=== PATIENT | male | born 1960 | race Caucasian/White ===

== ENCOUNTER 2016-06-18 17:54 | Emergency (ER) | payer OTHER ==
[~2016-06-18] VITALS: Ht 170.2 cm; Wt 84.0 kg
[2016-06-18] MEDS ORDERED: morphine 4 MG/ML VIAL IV STA ×2 (19:01→20:16)
[2016-06-18] MEDS ORDERED: SOD CHLORIDE 0.9% 1,000 ML IV STA (19:01)
[2016-06-18 19:03] VITALS: Ht 170.2 cm; Wt 84.0 kg
[2016-06-18] MEDS ORDERED: ONDANSETRON 4 MG INJ ONE (19:27)
[2016-06-18 19:33] LABS: ADD UMIC YES; URINE BILIRUBIN (Dip) NEGATIVE (NEGATIVE); URINE BLOOD (Dip) TRACE (NEGATIVE); URINE COLOR LT. YELLOW (YELLOW); URINE GLUCOSE (Dip) NEGATIVE (NEGATIVE); URINE KETONES (Dip) NEGATIVE (NEGATIVE); URINE LEUKOCYTE ESTERASE (Dip) 1+ (NEGATIVE); URINE NITRITE (Dip) NEGATIVE (NEGATIVE); URINE TOTAL PROTEIN (Dip) NEGATIVE (NEGATIVE); URINE UROBILINOGEN (Dip) 1.0 E.U./dL (0.1-1.0)
[2016-06-18] MEDS ORDERED: ONDANSETRON 4 MG INJ IV STA (19:34)
[2016-06-18 19:37] LABS: BASOPHIL # 0.1 10^3/ul (0.0-0.1); BASOPHILS % 0.5 % (0.0-2.0); EOSINOPHILS % 0.3 % (0.0-7.0); HEMATOCRIT 46.6 % (42.0-52.0); HEMOGLOBIN 15.8 g/dl (14.0-18.0); LYMPHOCYTES # 2.3 10^3/ul (0.8-2.9); LYMPHOCYTES % 15.6 % (15.0-51.0); MEAN CORPUSCULAR HEMOGLOBIN 30.9 pg (29.0-33.0); MEAN CORPUSCULAR HGB CONC 33.9 g/dl (32.0-37.0); MEAN CORPUSCULAR VOLUME 91.1 fl (82.0-101.0); MEAN PLATELET VOLUME 9.3 fl (7.4-10.4); MONOCYTES % 7.1 % (0.0-11.0); NEUTROPHIL # 11.3 10^3/ul (1.6-7.5); NEUTROPHILS % 76.5 % (39.0-77.0); PLATELET COUNT 254 10^3/UL (140-440); RED BLOOD COUNT 5.11 10^6/ul (4.70-6.10); RED CELL DISTRIBUTION WIDTH 13.4 % (11.5-14.5); UNCORRECTED WBC 14.7 10^3/ul (4.8-10.8); WHITE BLOOD COUNT 14.7 10^3/ul (4.8-10.8)
[2016-06-18 19:38] VITALS: TEMP 98
[2016-06-18 19:40] LABS: CONDITION 1
[2016-06-18 19:45] LABS: BACTERIA,URINE MANY; URINE RBCS 0-2 /HPF (0)
[2016-06-18 19:46] LABS: ALBUMIN 4.5 g/dl (3.3-4.9)
[2016-06-18 19:47] LABS: POTASSIUM 4.1 mmol/L (3.5-5.1)
[2016-06-18 19:49] LABS: ALBUMIN/GLOBULIN RATIO 1.09; BILIRUBIN,INDIRECT 0.5 mg/dl (0-1.1); BILIRUBIN,TOTAL 0.5 mg/dl (0.2-1.3); CREATININE 1.02 mg/dl (0.61-1.24); TOTAL PROTEIN 8.6 g/dl (6.1-8.1)
[2016-06-18 19:50] LABS: CALCIUM 9.6 mg/dl (8.4-10.2)
--- NOTE | 2016-06-18 19:59 | RADRPT ---
PROCEDURE: Scrotal ultrasound CLINICAL INDICATION: Left scrotal pain. TECHNIQUE: A scrotal ultrasound was performed utilizing vazquez scale and Doppler imaging. COMPARISON: None. FINDINGS: The right testicle measures 4.6 x 2.3 x 2.5 cm. There is normal size and echogenicity and morphology of the right testicle with normal blood flow. The right epididymis measures 1.2 x 0.9 cm. Normal va scular flow is seen within the right epididymis. There is a 5 mm cyst in the right epididymal head. The left testicle measures 3.7 x 2.0 x 2.9 cm. There is normal size and echogenicity and morphology of the left testicle with normal blood flow. The left epididymis measures 1.3 x 0.9 cm. Increased al so seen within the left epididymis, consistent with epididymitis. There are small bilateral hydroceles. No varicocele is identified. IMPRESSION: 1. Left sided epididymitis. 2. No evidence of testicular torsion or orchitis. 3. Small bilateral hydroceles. RPTAT: HTAR .Nathan Arauz MD, Date Time Electronically viewed and signed by .Nathan Arauz MD, on 06/18/2016 19:58 .R/
[2016-06-18] MEDS ORDERED: CEFTRIAXONE 1 GM/50 ML (PMX) 50 ML IVPB ONE (20:00)
--- NOTE | 2016-06-18 20:16 | ERD ---
ER Documentation Chief Complaint Date/Time DATE: 06/18/16 TIME: 20:12 Chief Complaint testicular pain w/ swelling x 2 days, worse today HPI This is a 56-year-old male presents to the emergency room with a chief complaint of constant testicular pain for the past 2 days. He localizes the left testicle, states it is a achy pain worse with any rapid movement. The patient is denying any urethral discharge, but does state that he has noted some blood in the urine. This patient denies any fevers associated with this and came to the ER today for evaluation. ROS All systems reviewed and are negative except as per history of present illness. Medications Home Meds No Active Prescriptions or Reported Meds Allergies Allergies: Coded Allergies: No Known Drug Allergies (Verified Allergy, Unknown, 06/18/16) PMhx/Soc History of Surgery: No Anesthesia Reaction: No Hx Neurological Disorder: No Hx Respiratory Disorders: No Hx Cardiac Disorders: Yes ("MILD HIGH CHOLESTEROL".) Hx Psychiatric Problems: No Hx Miscellaneous Medical Probl: Yes (RECENT POSSILE MASS TO BLADDER.) Hx Alcohol Use: Yes Hx Substance Use: No Hx Tobacco Use: Yes Smoking Status: Current every day smoker Physical Exam Vitals Vital Signs Date Time Temp Pulse Resp B/P Pulse Ox O2 Delivery O2 Flow Rate FiO2 06/18/16 19:38 98.0 79 18 130/79 97 06/18/16 19:03 97.7 84 20 136/85 97 Physical Exam INITIAL VITAL SIGNS: Reviewed by me GENERAL: The patient is well developed and appropriate for usual state of health in no apparent distress HEENT: Pupils equal, round, and reactive to light. EOMI. There is no scleral icterus. NECK: C-spine is soft and supple, there is no meningismus. There is no cervical lymphadenopathy. LUNGS: Clear to auscultation bilaterally. There are no rales, wheezes or rhonchi. HEART: Regular rate and rhythm, no murmurs, clicks, rubs or gallops. ABDOMEN: Soft, non-tender, non-distended. There are bowel sounds in all four quadrants. No rebound or guarding. EXTREMITIES: There is no peripheral cyanosis or edema. No focal swelling or erythema. NEUROLOGICAL: The patient moves all four extremities with 5/5 strength. Cranial nerves II - XII are intact. Normal gait. Alert and oriented SKIN: There is no apparent rash or petechiae. exam: Left scrotal erythema, swelling, tender to palpation in the epididymal region, cremasteric reflex present HEME/LYMPHATIC: There is no evidence of excessive bruising or lymphedema. PSYCHIATRIC: The patient does not appear anxious or depressed. Result Diagram: 06/18/16191406/18/161914 Results 24 hrs Laboratory Tests Test 06/18/16 19:15 Alanine Aminotransferase (ALT/SGPT) 55IU/L Albumin 4.5g/dl Albumin/Globulin Ratio 1.09 Alkaline Phosphatase 91IU/L Anion Gap 18 Aspartate Amino Transf (AST/SGOT) 40IU/L Basophils # 0.110^3/ul Basophils % 0.5% Blood Urea Nitrogen 17mg/dl Calcium Level 9.6mg/dl Carbon Dioxide Level 28mmol/L Chloride Level 102mmol/L Creatinine 1.02mg/dl Direct Bilirubin 0.00mg/dl Eosinophils # 0.010^3/ul Eosinophils % 0.3% Globulin 4.10g/dl Glucose Level 83mg/dl Hematocrit 46.6% Hemoglobin 15.8g/dl Indirect Bilirubin 0.5mg/dl Lipase 195U/L Lymphocytes # 2.310^3/ul Lymphocytes % 15.6% Mean Corpuscular Hemoglobin 30.9pg Mean Corpuscular Hemoglobin Concent 33.9g/dl Mean Corpuscular Volume 91.1fl Mean Platelet Volume 9.3fl Monocytes # 1.010^3/ul Monocytes % 7.1% Neutrophils # 11.310^3/ul Neutrophils % 76.5% Nucleated Red Blood Cells # 0.010^3/ul Nucleated Red Blood Cells % 0.0/100WBC Platelet Count 60119^3/UL Potassium Level 4.1mmol/L Red Blood Count 5.1110^6/ul Red Cell Distribution Width 13.4% Sodium Level 144mmol/L Total Bilirubin 0.5mg/dl Total Protein 8.6g/dl Urine Bacteria MANY Urine Bilirubin NEGATIVE Urine Clarity SLIGHTLY CLOUDY Urine Color LT. YELLOW Urine Glucose NEGATIVE% Urine Hemoglobin TRACE Urine Ketones NEGATIVE Urine Leukocyte Esterase 1+ Urine Microscopic RBC 0-2/HPF Urine Microscopic WBC >50/HPF Urine Nitrite NEGATIVE Urine Specific [place] 1.025 Urine Total Protein NEGATIVE Urine Urobilinogen 1.0 E.U./dL Urine pH 6.0 White Blood Count 14.710^3/ul Current Medications Medications (Trade) Dose Ordered Sig/Kiara Route PRN Reason Start Time Stop Time Status Last Admin Dose Admin Morphine Sulfate 4 mg 4 mg ONCE STAT IV 06/18/16 19:01 06/18/16 19:03 DC 06/18/16 19:33 Sodium Chloride (NS) 1,000 ml @ 1,000 mls/hr Q1H STAT IV 06/18/16 19:01 06/18/16 20:00 DC 06/18/16 19:33 Ondansetron HCl (Zofran Inj) 4 mg STK-MED ONCE .ROUTE 06/18/16 19:27 06/18/16 19:28 DC Ondansetron HCl 4 mg 4 mg ONCE STAT IV 06/18/16 19:34 06/18/16 19:35 DC 06/18/16 19:34 Ceftriaxone Sodium (Rocephin) 50 ml @ 100 mls/hr ONCE ONCE IVPB 06/18/16 20:00 06/18/16 20:29 Procedures/MDM Ultrasound scrotum: 1. Left sided epididymitis. 2. No evidence of testicular torsion or orchitis. 3. Small bilateral hydroceles. This 56-year-old male presents to the emergency room for evaluation of testicular pain. The patient localizes the testicular pain to the left portion of his scrotum. He was found to have erythematous and swollen scrotum. The patient did undergo an ultrasound which did confirm my suspicion of left-sided epididymitis. This patient is afebrile at this time, he was given Rocephin here in the emergency room and will be discharged home with a prescription for ciprofloxacin, Stevens for breakthrough pain, and a referral for outpatient urology. Smoking Cessation Therapy: Pt. was lectured for greater than 3 minutes on the health risks of continued smoking and the benefits of cessation. Departure Diagnosis: Primary Impression: Acute epididymitis Additional Impressions: Tobacco abuse Tobacco abuse counseling Condition: ALISHA Curry DO Jun 18, 2016 20:16
[2016-06-18] MEDS ORDERED: HYDR-906 PO (20:17)
[2016-06-18] MEDS ORDERED: CIPR500T4 PO (20:17)
[2016-06-18 20:40] VITALS: BP 135/93; PULSE 86; RESP 18
== END 2016-06-18 20:49 | disposition home or self-care (01) ==
LOC: E/R 17:54
DX: N45.1 Epididymitis (principal); F17.210 Nicotine dependence, cigarettes, uncomplicated; Z71.6 Tobacco abuse counseling
CPT/HCPCS: 76870; 80053; 81001; 81003; 83690; 85025; 87086; J0696; J2270; J2405; J7030; 36415; 96374; 96375; 96376

== ENCOUNTER 2017-05-05 10:11 | Day surgery (SDC) | payer OTHER ==
[2017-05-05] VITALS (11 sets, daily range): BP systolic 119–146; BP diastolic 85–100; PULSE 62–73; RESP 12–20; Ht 162.6 cm; Wt 82.6 kg
[~2017-05-05] VITALS: Ht 162.6 cm; Wt 82.6 kg
--- NOTE | 2017-05-05 08:56 | HP ---
DATE OF ADMISSION: 05/05/2017 The patient is scheduled for surgery today at noon. CHIEF COMPLAINT: Gross hematuria. HISTORY OF PRESENT ILLNESS: This is a 57-year-old male who is a smoker, about 1 pack of cigarettes a day and has been having gross hematuria on and off since 04/2016. He denies any prior surgery. Elvira brumfield did undergo a CT scan and that showed a tumor in the bladder. He also has seen another urologist and had a cystoscopy and was told there is a bladder tumor. PAST MEDICAL PROBLEMS: The patient has no other past medical problems. ALLERGIES: NO ALLERGIES. MEDICATIONS: He does not take any medication at home except for Vitamin D. SOCIAL HISTORY: He does drink socially and he smokes 1 pack of cigarettes a day. REVIEW OF SYSTEMS: He denies having any hypertension. There is no history of diabetes. There is n o heart or lung disease. GI system, he does complain of constipation. PHYSICAL EXAMINATION: GENERAL: Reveals a well-developed male who is in no acute distress. HEAD AND NECK: Unremarkable. HEART: Regular. LUNGS: Clear. ABDOMEN: Soft. There is no abdominal mass palpable. GENITALIA: External genitalia are normal. RECTAL: Examination revealed soft prostate. The patient does have a tumor on the left side of the bladder. EXTREMITIES: Normal. IMPRESSION: Bladder tumor. PLAN: To do a cystoscopy and transurethral resection of the bladder tumor and if the tumor is cover ing the left ureteral orifice the patient will need to have insertion of a JJ stent. I have explain ed to the patient and to his the procedure, the benefits, the risks and the possible complicati ons and the fact that the bladder tumors do tend to come back and have recurrences and therefore, fu ture need for cystoscopies and if needed, undergoing additional treatment or surgeries. The patient did understand all that and he is agreeable to proceed. Dictated By: ZACK CHAVEZ/FABIÁN Conf#: [id number] DID#: [id number]
[~2017-05-05 10:11] MED LIST: CIPR500T4 PO; HYDR-906 PO
[2017-05-05] MEDS ORDERED: CEFAZOLIN 2 GM/50 ML (PMX) 50 ML IVPB SCH (11:00)
[2017-05-05] MEDS ORDERED: FENTAnyl 50 MCG/ML VIAL ONE (12:54)
[2017-05-05] MEDS ORDERED: MIDAZOLAM 1 MG/ML 2 ML INJ ONE (12:54)
[2017-05-05] MEDS ORDERED: PROPOFOL 20 ML ONE (12:54)
[2017-05-05] MEDS ORDERED: DEXAMETHASONE 4 MG/ML 1 ML INJ ONE (13:36)
[2017-05-05] MEDS ORDERED: ONDANSETRON 4 MG INJ ONE (13:36)
[2017-05-05] MEDS ORDERED: CEFAZOLIN 1 GM INJ ONE (13:36)
[2017-05-05] MEDS ORDERED: SUGAMMADEX SODIUM 200 MG/2 ML VIAL IV ONE (13:36)
[2017-05-05] MEDS ORDERED: METOCLOPRAMIDE 10 MG INJ ONE (13:36)
--- NOTE | 2017-05-05 13:56 | OPR ---
Date/Time of Note Date/Time of Note DATE: 05/05/17 TIME: 13:49 Operative Report Procedure Date: May 05, 2017 Preoperative Diagnosis Bladder tumor Postoperative Diagnosis Bladder tumor Operation/Procedure Performed Transurethral resection of bladder tumor Surgeon see signature line Flat Lock Operator None Anesthesia Type: general Anesthesiologist: JUDY CORONEL MD Estimated Blood Loss: minimal Transfusion none Specimen 1:bladder tumor left lateral wall, 2:base of bladder tumor Grafts/Implants none Complications none Pt Condition Post Procedure: stable Disposition: PACU Indications Bladder tumor Procedure Description The patient was brought to the operating room and given general anesthesia. The patient was positioned in the lithotomy position. He was given 2 g of Ancef IV at the start of the procedure. Timeout was done and the patient was identified by his name birthdate and the procedure. The genital area was then prepped and draped in the usual sterile manner. #22 [place] cystoscope sheath was then introduced under direct vision through the penile urethra all the way to the bladder. The tumor was identified on the left side of the bladder proximal and lateral to the left ureteral orifice. The ureteral orifices were both clean and away from the tumor. There were no additional tumors. The scope was then removed and a 26 [place] bipolar resectoscope sheath was introduced under direct vision all the way to the bladder. The tumor was then resected and the tissue collected for pathology. Then I did take a deep got at the base of the tumor and sent it separately for pathology. The tumor base and the edges were then electrocoagulated and there were no area of bleeding. The bladder was then emptied and the area of the tumor was again observed to make sure there is no bleeding. The bladder was emptied the scope was removed and the patient was transferred to recovery room in stable and satisfactory condition ZACK RAJAN MD May 05, 2017 13:56
[2017-05-05] MEDS ORDERED: METOCLOPRAMIDE 10 MG INJ IV PRN (14:00)
[2017-05-05] MEDS ORDERED: EPHEDrine SULFATE 50 MG/5 ML SYG IV PRN (14:00)
[2017-05-05] MEDS ORDERED: hydrALAzine 20 MG INJ IV PRN (14:00)
[2017-05-05] MEDS ORDERED: morphine (1 MG/ML) 10ML SYRINGE IV PRN ×3 (14:00)
[2017-05-05] MEDS ORDERED: LABETALOL HCL 20MG INJ IV PRN (14:00)
[2017-05-05] MEDS ORDERED: ONDANSETRON 4 MG INJ IV PRN (14:00)
[2017-05-05] MEDS ORDERED: FENTAnyl 50 MCG/ML VIAL IV PRN ×2 (14:00)
[2017-05-05] MEDS: FENTAnyl 50 MCG/ML VIAL IV PRN ×2 (14:17→14:30)
[2017-05-05] MEDS ORDERED: HYDROCODONE/APAP (5/325) TAB PO PRN (14:30)
== END 2017-05-05 16:25 | disposition home or self-care (01) ==
LOC: SDS 10:11
PROVIDERS: ATTEND Urology
DX: D49.4 Neoplasm of unspecified behavior of bladder (principal); Z72.0 Tobacco use
CPT/HCPCS: 52234; J0690; J1100; J2250; J2405; J2765; J3010; Z7512; Z7610

== ENCOUNTER → 2018-02-05 | Day surgery (SDC) | END | disposition home or self-care (01) ==

== ENCOUNTER 2018-02-08 07:57 | Emergency (ER) | END 2018-02-08 10:52 | disposition home or self-care (01) ==

== ENCOUNTER 2018-02-12 09:57 | Inpatient (IN) | END 2018-02-14 15:35 | disposition home or self-care (01) | DRG 392 ==

== ENCOUNTER 2018-02-24 10:42 | Inpatient (IN) | END 2018-03-25 15:11 | disposition home health service (06) | DRG 653 ==

== ENCOUNTER 2018-06-13 11:29 | Emergency (ER) | payer OTHER ==
[~2018-06-13] VITALS: Ht 170.2 cm; Wt 75.3 kg
[~2018-06-13 11:29] MED LIST changes: -CIPR500T4 PO; +DOXY100T2 PO; +FLUC100T PO; -HYDR-906 PO; +LACT1CAP28 PO; +OXYB5TAB7 PO; +OXYC-438 PO; +RIVA15TA PO
[2018-06-13 11:34] VITALS: Ht 170.2 cm; Wt 75.3 kg
[2018-06-13] MEDS ORDERED: SODIUM CHLORIDE 0.9% 1L BAG IV* STA (12:25)
[2018-06-13] MEDS ORDERED: PIPER-TAZO 3.375 GM IV (PMX) 100 ML IVPB STA (12:25)
[2018-06-13] MEDS ORDERED: OXYB5TAB7 PO (12:38)
[2018-06-13] MEDS ORDERED: RIVA20TA5 PO (12:38)
[2018-06-13] MEDS ORDERED: TAMS0.4C2 PO (12:39)
[2018-06-13] MEDS ORDERED: CIPR500T4 PO (13:48)
--- NOTE | 2018-06-13 13:51 | ERD ---
ER Documentation Chief Complaint Chief Complaint bilateral flank pain x 2 days HPI Patient is a 58-year-old male with bladder cancer who presents with 2 days of fever. He has a history of bladder surgery with nephrostomy tubes. He had blood in his urine as well. He called Dr. Gruber his urologist from [facility] but the office was not open. Therefore he came to the emergency department. He took Tylenol last night for the fever. He has some pus from around his suprapubic catheter. He has an appointment scheduled on June 17 with his urologist. His primary doctor is Dr. Reardon. Upon review of old medical records this is the patient's seventh visit to the ER since 2016. ROS All systems reviewed and are negative except as per history of present illness. Medications Home Meds Active Scripts Ciprofloxacin Hcl* (Ciprofloxacin Hcl*) 500 Mg Tablet, 500 MG PO BID for 10 Days, TAB Prov:MAHIN MORENO MD 06/13/18 Reported Medications Tamsulosin Hcl* (Tamsulosin Hcl*) 0.4 Mg Cap.er.24h, 0.4 MG PO HS, CAP 06/13/18 Oxybutynin Chloride* (Ditropan*) 5 Mg Tab, 5 MG PO TID, TAB 06/13/18 Rivaroxaban* (Xarelto*) 20 Mg Tablet, 20 MG PO WITH DINNER, TAB 06/13/18 Discontinued Scripts Lactobacillus Rhamnosus GG (Culturelle) 1 Each Capsule, 1 CAP PO BID for 30 Days, #60 CAP Prov:JAMA CAPELLAN 03/25/18 Oxycodone HCl/Acetaminophen (Oxycodone-Acetaminophen 5-325) 1 Each Tablet, 1 TAB PO Q4H PRN for PAIN LEVEL 1-5 for 10 Days, TAB Prov:JAMA CAPELLAN 03/25/18 Rivaroxaban* (Xarelto*) 15 Mg Tablet, 15 MG PO BID WITH MEALS for 21 Days, TAB Prov:JAMA CAPELLAN 03/25/18 Fluconazole* (Diflucan*) 100 Mg Tablet, 100 MG PO DAILY for 10 Days, #10 TAB Prov:JAMA CAPELLAN 03/25/18 Doxycycline* (Vibramycin*) 100 Mg Tab, 100 MG PO BID for 10 Days, #20 TAB Prov:JAMA CAPELLAN 03/25/18 Oxybutynin Chloride* (Ditropan*) 5 Mg Tablet, 5 MG PO TID for 30 Days, TAB Prov:JAMA CAPELLAN 03/25/18 Allergies Allergies: Coded Allergies: warfarin (Verified Allergy, Intermediate, severe nausea and headache and abdominal pain, 06/13/18) Per primary MD and RN- documented 03/23 1830 after warfarin dose PMhx/Soc History of Surgery: Yes (BLADDER CA TUMOR REMOVAL) Anesthesia Reaction: No Hx Neurological Disorder: No Hx Respiratory Disorders: No Hx Cardiac Disorders: No Hx Psychiatric Problems: No Hx Miscellaneous Medical Probl: Yes (BLADDER CA , S/P RESECTION , BLOOD CLOT IN LEG) Hx Alcohol Use: No Hx Substance Use: No Hx Tobacco Use: No (QUIT 05/01) Smoking Status: Former smoker FmHx Family History: No diabetes Physical Exam Vitals Vital Signs Date Temp Pulse Resp B/P (MAP) Pulse Ox O2 O2 Flow FiO2 Time Delivery Rate 06/13/18 98.1 88 17 136/86 100 Room Air 12:51 (103) 06/13/18 97.2 86 18 115/72 96 11:34 (86) Physical Exam Const: No acute distress Head: Atraumatic Eyes: Normal Conjunctiva ENT: Normal External Ears, Nose and Mouth. Neck: Full range of motion. No meningismus. Resp: Clear to auscultation bilaterally Cardio: Regular rate and rhythm, no murmurs Abd: Soft, non tender, non distended. Normal bowel sounds Skin: Hole at the suprapubic catheter which is no longer in place has some pus like discharge Back: No midline or flank tenderness Ext: No cyanosis, or edema Neur: Awake and alert Psych: Normal Mood and Affect Result Diagram: 06/13/18 1242 06/13/18 1242 Results 24 hrs Laboratory Tests Test 06/13/18 12:42 06/13/18 12:43 06/13/18 13:00 White Blood Count 9.8 10^3/ul Red Blood Count 4.46 10^6/ul Hemoglobin 12.7 g/dl Hematocrit 39.5 % Mean Corpuscular Volume 88.6 fl Mean Corpuscular Hemoglobin 28.5 pg Mean Corpuscular 32.2 g/dl Hemoglobin Concent Red Cell Distribution Width 14.6 % Platelet Count 239 10^3/UL Mean Platelet Volume 10.0 fl Immature Granulocytes % 0.500 % Neutrophils % 69.6 % Lymphocytes % 17.7 % Monocytes % 11.1 % Eosinophils % 0.8 % Basophils % 0.3 % Nucleated Red Blood Cells % 0.0 /100WBC Immature Granulocytes # 0.050 10^3/ul Neutrophils # 6.8 10^3/ul Lymphocytes # 1.7 10^3/ul Monocytes # 1.1 10^3/ul Eosinophils # 0.1 10^3/ul Basophils # 0.0 10^3/ul Nucleated Red Blood Cells # 0.0 10^3/ul Prothrombin Time 12.7 Sec Prothrombin Time Ratio 1.0 INR International 0.94 Normalized Ratio Activated Partial Thromboplast 28.8 Sec Time Sodium Level 142 mmol/L Potassium Level 4.6 mmol/L Chloride Level 106 mmol/L Carbon Dioxide Level 27 mmol/L Anion Gap 9 Blood Urea Nitrogen 15 mg/dl Creatinine 0.67 mg/dl Est Glomerular Filtrat > 60 mL/min Rate mL/min Glucose Level 97 mg/dl Calcium Level 9.7 mg/dl Troponin I < 0.012 ng/ml POC Venous Lactate 1.3 mmol/L Urine Color YELLOW Urine Clarity CLOUDY Urine pH 5.0 Urine Specific [place] 1.015 Urine Ketones NEGATIVE mg/dL Urine Nitrite POSITIVE mg/dL Urine Bilirubin NEGATIVE mg/dL Urine Urobilinogen NEGATIVE mg/dL Urine Leukocyte Esterase 3+ Annamaria/ul Urine Microscopic RBC > 182 /HPF Urine Microscopic WBC > 182 /HPF Urine Bacteria FEW /HPF Urine Mucus FEW /HPF Urine Hemoglobin 3+ mg/dL Urine Glucose NEGATIVE mg/dL Urine Total Protein 1+ mg/dl Current Medications Medications Dose Sig/Kiara Start Time Status Last (Trade) Ordered Route PRN Stop Time Admin Dose Reason Admin Sodium 2,260 ml BOLUS OVER 2 06/13/18 DC 06/13/18 Chloride HOURS STAT 12:25 12:45 (NS) IV* 06/13/18 12:26 Piperacillin 100 ml @ ONCE STAT 06/13/18 DC 06/13/18 Sod/ 200 mls/hr IVPB 12:25 13:21 Tazobactam 06/13/18 Sod 12:54 Procedures/MDM EKG read by me: Rate/Rhythm: Regular rate and rhythm at a rate of 84 Intervals: Normal Impression: No evidence of ischemia or arrhythmia CT abdomen pelvis is pending at this time. She is a 58-year-old male with a history of bladder surgery who presents with fever and hematuria. The patient was found to have acute cystitis. Laboratory studies otherwise are basically normal. CT scan of the abdomen and pelvis is pending at this time to rule out intra-abdominal abscess. If this is negative I believe outpatient management with Cipro would be reasonable for 10 days and I did encourage close follow-up with his urologist. The patient could return for any worsening symptoms. The patient will be signed out to the oncoming physician. Departure Diagnosis: Primary Impression: Cystitis Additional Impression: Flank pain Condition: Fair Patient Instructions: Cystitis Referrals: Dr. Gruber Additional Instructions: SPECIALIST: YOU HAVE A MEDICAL CONDITION WHICH REQUIRES YOU TO SEE A SPECIALIST WITHIN THE NEXT 1-2 DAYS. PLEASE FOLLOW UP WITH YOUR PRIMARY PHYSICIAN FOR REFFERAL.IF YOU DO NOT HAVE A PRIMARY CARE PHYSICIAN AND/OR YOU CAN NOT AFFORD TO SEE A PHYSICIAN THE FOLLOWING RESOURCES HAVE BEEN SUPPLIED TO YOU. IT IS YOUR RESPONSIBILITY TO BE SEEN BY THE SPECIALIST MAHIN MORENO MD Jun 13, 2018 13:51
[2018-06-13 14:08] VITALS: BP 112/82; PULSE 70; RESP 17
[2018-06-13] MEDS ORDERED: IOHEXOL 300MG/ML 150 ML BTL ONE (14:24)
[2018-06-13] MEDS ORDERED: SOD CHLORIDE 0.9% 100 ML ONE (14:24)
--- NOTE | 2018-06-13 15:02 | EN ---
Date/Time of Note Date/Time of Note DATE: 06/13/18 TIME: 15:01 ER Progress Note Patient signed out to me pending CT scan of the abdomen and pelvis. No intra- abdominal or pelvic abscess identified on CT imaging. Plan was for discharge if CT scan is unremarkable, which it is. Patient's vital signs are normal and he is asymptomatic at this time. Patient discharged to home in good condition with scheduled follow-up with PMD and urologist. JAMA LYNN MD Jun 13, 2018 15:02
== END 2018-06-13 15:20 | disposition home or self-care (01) ==
LOC: E/R 11:29
DX: N30.90 Cystitis, unspecified without hematuria (principal); Z85.51 Personal history of malignant neoplasm of bladder; Z87.891 Personal history of nicotine dependence; Z79.01 Long term (current) use of anticoagulants
CPT/HCPCS: 36415; 74177; 80048; 81001; 83605; 84484; 85025; 85610; 85730; 87040; 87086; 93005; 96374; J2543; J7030; Q9967; Z7502; Z7610

== ENCOUNTER → 2018-10-17 | Outpatient (CLI) | payer OTHER ==
[~2018-10-17] MED LIST changes: +CIPR500T4 PO; -DOXY100T2 PO; -FLUC100T PO; +IOHEXOL 300MG/ML 30 ML BTL ONE; -LACT1CAP28 PO; -OXYC-438 PO; -RIVA15TA PO; +RIVA20TA5 PO; +SOD CHLORIDE 0.9% 500 ML ONE; +TAMS0.4C2 PO
== END | disposition home or self-care (01) ==
LOC: C/S 08:46
PROVIDERS: ATTEND Urology
DX: K82.3 Fistula of gallbladder (principal); K57.30 Diverticulosis of large intestine without perforation or abscess without bleeding; K43.9 Ventral hernia without obstruction or gangrene
CPT/HCPCS: 72192; J7040; Q9967